=== PATIENT | female | born 1945 | race Caucasian/White ===

== ENCOUNTER → 2016-06-01 | Day surgery (SDC) | payer MEDICARE ==
[~2016-06-01] MED LIST: BUPIVACAINE/EPINEPHRINE 0.25% PF 30 ML VIAL ONE; LACTATED RINGER'S 1000 ML INJ 1,000 ML ONE; ONDANSETRON HCL 4 MG/2 ML VIAL IV PUSH ONE; PROPOFOL 200 MG/20 ML AMP IV ONE; ceFAZolin 2 GM PREMIX 50 ML ONE
--- NOTE | 2016-06-04 13:17 | MP ---
cc: RELL ALVA M.D. DATE OF SURGERY: 06/01/2016 PREOPERATIVE DIAGNOSIS Right elbow osteoarthritis with loose body. 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 PROCEDURE 1. Right elbow arthroscopic removal of loose body. 2. 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 ANESTHETIC General. SURGEON Rell Alva MD NET MAKING SUPERVISOR SURGEON NNEKA Queen ESTIMATED BLOOD LOSS Minimum. DRAIN None. SPECIMEN Fragment photographed with the plan to show it to the patient in the recovery room who requested to see it and then discard it. COMPLICATIONS None known. INDICATION Kajal Oliva is a 70-year-old female with intermittent locking of her right elbow. Workup revealed some arthritis of the elbow and large loose body. She now presents for arthroscopic surgery to improve her condition by removing the loose body and assessing the inside of the elbow joint and make it better if we can. The risks, benefits discussed and a detailed informed consent was obtained. No guarantees were offered. PROCEDURE The patient was brought to the operating room. She was placed under general anesthetic. She was maintained in the supine position. The sociology research assistant Jose David Benitez is advanced registered nurse practitioner and his skill set was medically necessary. He held the positioning of the arm with traction and various rotation of the forearm and helped hold instrumentation including the arthroscope and his skill set was medically necessary for the operation. After the time-out was completed we injected Marcaine with epinephrine in the direct lateral portal and then we made our anterolateral portal just above the radial head along the joint line and used a hemostat to spread in the joint and introduced the scope with a blunt trocar, this was a 4 mm scope. Upon entering the elbow joint we saw the large loose body and photographed this at that time and then we looked around it and we saw significant synovitis, significant bone overgrowth of the coronoid process, then we visualized medially and we had drawn out all of our positions of our motor nerves and then palpated along just distal to the medial epicondyle and then identified the anterior medial joint line and then used the 22 gauge needle to inject Marcaine in this area and made a small longitudinal incision. A hemostat was used to introduce into the capsule and then spread slightly and then from this position we were able to bring in a shaver and gently smooth the delaminated cartilage on the distal humerus near the ulnar humeral joint and then we used a straight small hemostat to grasp the loose body and slightly enlarged this portal and able to remove this large loose body out and kept that on the back table and later photographed it. Then we inspected the elbow for other concerns and with elbow flexion the coronoid process hid a large osteophyte in the coronoid fossa and so we debrided the osteophyte's bony overgrowth within the coronoid fossa and also the tip of the coronoid process itself and then photographed both areas and we debrided some hypertrophic scar tissue and obtained hemostasis with the use of electrocautery and switched over a switching stick and brought the scope in from medial and photographed the radial head from this position and the coronoid fossa from this position and then confirmed no other loose body with taking the elbow through range of motion and then removed the arthroscope and photographed the loose body with a ruler demonstrating it was approximately 17 mm in length on the longest dimension. The arthroscopic equipment was removed. Marcaine had been injected about the portals. Sterile dressing was applied. Sling was applied. The patient was awoken and returned to the recovery room in stable condition. MD MACKENZIE Fuentes/NIGEL /10:59 AM /12:57 PM
== END | disposition home or self-care (01) ==
LOC: ESDC 08:01
PROVIDERS: ATTEND Orthopaedic Surgery Sports Medicine
DX: M24.021 Loose body in right elbow (principal); M19.021 Primary osteoarthritis, right elbow
CPT/HCPCS: 01740; 29834; 29838; J0690; J2405; J3010; J7120